=== PATIENT | female | born 1950 | race Caucasian/White ===

== ENCOUNTER 2018-09-06 05:32 | Day surgery (SDC) | payer MEDICARE ==
--- NOTE | 2018-09-02 12:55 | HP ---
Amended report to enter cosigning physician. HISTORY AND PHYSICAL: DATE OF ADMISSION/SURGERY: 09/06/18 DATE OF OFFICE VISIT: 09/02/18 SURGEON: Zoe Canas MD* (dictated by AROLDO Pena). PROCEDURE: Manipulation under anesthesia, right total knee arthroplasty. CHIEF COMPLAINT: Right knee stiffness. HISTORY OF PRESENT ILLNESS: Ms. Ferrell is a 68-year-old female, who underwent a right total knee arthroplasty approximately 7 weeks ago. She continues to have stiffness and has elected to proceed with manipulation under anesthesia. PAST MEDICAL HISTORY: Seizures. PAST SURGICAL HISTORY: Nasal surgery, vaginal surgery, tumor excision from her left breast, and D and Cs. CURRENT MEDICATIONS: 1. Percocet as needed. 2. Tylenol as needed. 3. Flexeril as needed. 4. Calcium and vitamin D. 5. Dilantin 100 mg 2 tabs a day. ALLERGIES: SODIUM PENTOTHAL. FAMILY HISTORY: Cancer, RA, TIA, and stroke. SOCIAL HISTORY: She is a 68-year-old female. She lives with her . She does not smoke. REVIEW OF SYSTEMS: A complete 14-point review of systems was reviewed with the patient. It was all negative or noncontributory. She denies history of DVT, PE , hepatitis, HIV, or anesthesia problems. PHYSICAL EXAMINATION GENERAL: She is well developed, well nourished, in no acute distress. VITAL SIGNS: She stands 62 inches tall, weighs 153 pounds. Her blood pressure is 108/64, her heart rate is 82. HEENT: Normocephalic, atraumatic. NECK: Supple. No palpable lymph nodes. PULMONARY: The lungs are clear to auscultation bilaterally. CARDIO: Regular rate and rhythm. Strong S1, S2. ABDOMEN: Soft, nontender, nondistended. NEUROLOGICAL: She is alert and oriented x3. MUSCULOSKELETAL: Right lower extremity: Skin is intact. There are no open wounds or abrasions. The incision over the right anterior knee is well healed without any signs of infection. Her calf is soft and nontender. She is able to dorsiflex and plantarflex and has a 2+ dorsalis pedis pulse. Range of motion is 5 to 90 degrees. ASSESSMENT AND PLAN: Ms. Ferrell is a 68-year-old female with stiffness of her right total knee arthroplasty. Her surgery was approximately 7 weeks ago. She has elected to proceed with manipulation under anesthesia of her right total knee arthroplasty with Dr. Canas on 09/06/18. The risks and benefits were discussed with her today and she will see Dr. Canas back 2 weeks after the manipulation. We have recommended physical therapy the following day and 3 times a week after that. AROLDO PENA [id number]/[facility] #: [id number] DAWIT
[~2018-09-06 05:32] MED LIST: Buffered Lidocaine 1% SYRIN* 1 ML/SYRINGE INTRADERM ONE
[2018-09-06] MEDS ORDERED: Famotidine IV* 10 MG/ML 2 ML (20 mg) ONE (05:51)
[2018-09-06] MEDS ORDERED: Buffered Lidocaine 1% SYRIN* 1 ML/SYRINGE INTRADERM ONE (05:51)
[2018-09-06] MEDS ORDERED: Dexamethasone IV* 4 MG/ML 1 ML (4 MG) ONE (05:51)
[2018-09-06] MEDS ORDERED: Lactated Ringers 1000 ML Bag* 1,000 ML IV SCH (06:00)
[2018-09-06] MEDS ORDERED: Famotidine IV* 10 MG/ML 2 ML (20 mg) IV ONE (06:00)
[2018-09-06] MEDS ORDERED: Dexamethasone TAB* 4 MG PO ONE (06:00)
[2018-09-06] MEDS ORDERED: Dexamethasone TAB* 4 MG ONE (06:22)
[2018-09-06] MEDS ORDERED: Midazolam* 1 MG/ML 5 ML VIAL (5 MG) ONE (07:08)
[2018-09-06] MEDS ORDERED: fentaNYL* 50 MCG/ML 5 ML VIAL (250 MCG VIAL) ONE (07:08)
[2018-09-06] MEDS ORDERED: Lidocaine 2% PF * 5 ML VIAL ONE ×2 (07:11→07:33)
[2018-09-06] MEDS ORDERED: Ketorolac INJ* 30 MG/ML 1 ML VIAL ONE (07:33)
[2018-09-06] MEDS ORDERED: Propofol* 10 MG/ML 20 ML BTL ONE (07:33)
[2018-09-06] MEDS ORDERED: Ondansetron INJ* 2 MG/ML VIAL ONE (07:33)
[2018-09-06] MEDS ORDERED: Naloxone* 0.4 MG/ML 1 ML VIAL IV PRN (07:51)
[2018-09-06] MEDS ORDERED: oxyCODONE/Acetamin 5/325 MG* TAB PO PRN (07:51)
[2018-09-06] MEDS ORDERED: DiMENhydriNATE IV* 50 MG/ML VIAL IV PUSH PRN (07:51)
[2018-09-06] MEDS ORDERED: Ondansetron INJ* 2 MG/ML VIAL IV PRN (07:51)
[2018-09-06] MEDS ORDERED: fentaNYL* 50 MCG/ML 2 ML VIAL (100 MCG VIAL) ONE (07:55)
[2018-09-06] MEDS: fentaNYL* 50 MCG/ML 2 ML VIAL (100 MCG VIAL) IV PRN ×2 (07:59→08:41)
[2018-09-06] MEDS ORDERED: oxyCODONE/Acetamin 5/325 MG* TAB ONE (08:14)
[2018-09-06 09:42] VITALS: BP 151/95
--- NOTE | 2018-09-06 20:58 | OP ---
OPERATIVE REPORT: DATE OF OPERATION: 09/06/18 DATE OF : 50 ATTENDING SURGEON: Zoe Canas MD ANESTHESIOLOGIST: Dr. Back. ANESTHESIA TYPE: General LMA. PRE-OP DIAGNOSIS: Right total knee arthroplasty with stiffness, arthrofibrosis. POST-OP DIAGNOSIS: Right total knee arthroplasty with stiffness, arthrofibrosis. OPERATIVE PROCEDURE: Manipulation under anesthesia of right total knee arthroplasty. COMPLICATIONS: None. SPECIMEN: None. ESTIMATED BLOOD LOSS: None. BRIEF HISTORY/INDICATION: Ms. Ferrell had an uncomplicated right total knee arthroplasty approximatel y 7 weeks ago. She had no postoperative complications. She did struggle with pain control and knee f lexion. By postoperative week 7, the patient was unable to bend the knee past 90 degrees. The patie nt and I discussed manipulation under anesthesia, risks and benefits. She wished to proceed. The un derstood the risks included, but were not limited to intraarticular bleeding, infection, periprosthet ic fracture, continued stiffness, need for further surgery, anesthesia complications, stroke, heart a ttack, blood clot, and . She wished to proceed. INTRAOPERATIVE FINDINGS: Pre-manipulation range of motion was 5 to 80 degrees with flexion, post-man ipulation range of motion was 5 to 125 degrees with flexion. DESCRIPTION OF PROCEDURE: Ms. Ferrell was identified in the preanesthesia unit. Her right lower extre mity was marked as the correct operative side. Informed consent was signed and placed in the chart. The patient was taken to the operating room and placed under general anesthesia. Preop time-out was made to correctly identify the patient's side and site. Operating room designated camera was used t o document pre and post manipulation range of motion. Using gentle pressure, the knee was directly e xtended and flexed several times. Audible and palpable scar tissue breakup was observed. The knee w as flexed from initial 80 degrees to 125 degrees without difficulty. Minimal force was used. [email or web address] ar tracking was satisfactory. AP and lateral C-arm views were obtained to ensure there was no visibl e periprosthetic fracture. None was visualized. The patient's anesthesia was reversed without diffi culty. She was taken to the PACU in stable condition. Intended weightbearing will be weightbearing a s tolerated. She will have aggressive physical therapy. She will have aspirin for DVT prophylaxis. [id number]/[facility] #: [id number]
== END 2018-09-06 09:49 | disposition home or self-care (01) ==
LOC: OR 05:32
PROVIDERS: ATTEND Orthopaedic Surgery Adult Reconstructive Orthopaedic Surgery
DX: M24.661 Ankylosis, right knee (principal); Z96.651 Presence of right artificial knee joint; I10 Essential (primary) hypertension
CPT/HCPCS: 76000; A9270-GY; C1776; J1100; J1885; J2250; J2405; J2704; J3010; J8540

== ENCOUNTER 2023-07-29 07:30 | Inpatient (IN) ==
[2023-07-29] MEDS ORDERED: Lidocaine 2% PF 5 ML VIAL ONE (08:44)
[2023-07-29] MEDS ORDERED: Dexamethasone IV 4 MG/ML VIAL 1 ml VIAL ONE (08:44)
[2023-07-29] MEDS ORDERED: Ondansetron 4 mg VIAL 2 MG/ML 2 ml VIAL ONE (08:44)
[2023-07-29] MEDS ORDERED: Propofol 10 MG/ML 20 ML BTL ONE (08:44)
[2023-07-29] MEDS ORDERED: fentaNYL 100 mcg/2 ml 50 MCG/ML VIAL ONE (08:45)
[2023-07-29] MEDS ORDERED: Midazolam 2 mg/2 ml VIAL 1 mg/ml 2 ml VIAL (2 mg) ONE (08:45)
[2023-07-29] MEDS ORDERED: ceFAZolin 2 GM PREMIX 2 GM/50 ML BAG ONE (08:48)
[2023-07-29] MEDS ORDERED: Tranexamic Acid 1 GM/100ML BAG 2,000 MG/200 ML BAG IV ONE (08:48)
[2023-07-29 08:56] LABS: Rapid COVID-19 Molecular Undetected (Undetected)
[2023-07-29] MEDS ORDERED: HYDROmorphone 1 MG/1 ML SYRINGE IV PRN (11:39)
[2023-07-29] MEDS ORDERED: Naloxone 0.4 mg VIAL 0.4 mg/ml 1 ml VIAL IV PRN (11:39)
[2023-07-29] MEDS ORDERED: ROPIVACAINE 5 MG/ML 30 ML BTL (0.5%) ONE (11:48)
[2023-07-29] MEDS ORDERED: Ondansetron 4 mg VIAL 2 MG/ML 2 ml VIAL IV PRN (13:19)
[2023-07-29] MEDS ORDERED: Lactulose 30 ml UDC PO PRN (13:19)
[2023-07-29] MEDS ORDERED: Ondansetron ODT 4 mg TAB 4 MG TAB PO PRN (13:19)
[2023-07-29] MEDS ORDERED: Magnesium Hydroxide LIQ 30 ML UDC PO PRN (13:19)
[2023-07-29] MEDS ORDERED: HYDROmorphone 1 MG/1 ML SYRINGE ONE (15:39)
[2023-07-29] MEDS: HYDROmorphone 1 MG/1 ML SYRINGE IV PRN (15:45)
[2023-07-29] MEDS: Lactated Ringers 1000 ml BAG 1,000 ML IV SCH ×2 (17:26→17:35)
[2023-07-29] MEDS: Morphine 2 MG/ML SYRINGE IV PRN (17:26)
[2023-07-29] MEDS: Buffered Lidocaine 1% SYRIN 1 ml INTRADERM ONE (19:24)
[2023-07-29] MEDS: ceFAZolin 1 GM ADVAN 1 GM in NS 0.9% 50 ML 50 ML IVPB SCH (21:51)
[2023-07-29] MEDS: Magnesium Hydroxide LIQ 30 ML UDC PO SCH (21:52)
[2023-07-30 06:57] LABS: Hematocrit 31.3 % (35-45); Hemoglobin 10.5 g/dL (11.5-14.3); Mean Platelet Volume 8.8 fL (7.5-11.2); Platelet Count 162 10^3/uL (150-450)
[2023-07-30 07:06] LABS: Calcium 8.1 mg/dL (8.6-10.3); Creatinine, Serum 0.74 mg/dL (0.51-0.95); Potassium 4.5 mmol/L (3.5-5.0); eGFR CKD-EPI 85.4 (>60)
[2023-07-30] MEDS: Vitamin THERAPEUTIC TAB PO SCH (08:33)
[2023-07-30] MEDS: Phenytoin 100 mg ER CAP PO SCH (08:33)
[2023-07-30 09:51] VITALS: BP 118/63
== END 2023-07-30 14:18 | disposition home or self-care (01) | DRG 470 ==
LOC: SSU → INTOOBSV 08:13 → AA 08:13 → OBSVTOIN 13:19 → INTOOBSV 13:19
PROVIDERS: ADMIT Orthopaedic Surgery Adult Reconstructive Orthopaedic Surgery; ATTEND Orthopaedic Surgery Adult Reconstructive Orthopaedic Surgery